=== PATIENT | female | born 1950 | race Caucasian/White ===

== ENCOUNTER → 2016-10-03 | Outpatient (CLI) | payer MEDICARE, BC ==
[~2016-10-03] MED LIST: ALPR0.5T3 PO; ASCO500C PO; CHOL1TAB42 PO; DIAZ5 PO; ESCI10TA PO; L-ME1CAP2 PO; LOSA100T PO; METO25TA6 PO; PRIL20CA9 PO; TANDCAP PO
--- NOTE | 2016-10-03 15:11 | RADRPT ---
EXAM DATE/TIME: 10/03/2016 14:35 [facility] COMPARISON: No previous studies available for comparison. INDICATIONS : Evaluate for pneumonia, pneumothorax and communicable diseases. Pre-op uterine surg leah MEDICAL HISTORY : Skin cancer SURGICAL HISTORY : None. ENCOUNTER: Initial ACUITY: 1 day PAIN SCORE: 0/10 LOCATION: Chest FINDINGS: There is a large hiatal hernia present. The lungs are clear. Heart and pulmonary vascularity are no rmal. Portion of bony skeleton visualized is unremarkable. CONCLUSION: Large hiatal hernia. Orville Curiel MD FACR on October 03, 2016 at 15:06 Board Certified Radiologist. This report was verified electronically.
--- NOTE | 2016-10-04 14:47 | EKG ---
Date Performed: 10/03/2016 Time Performed: 13:47:28 PTAGE: 66 years EKG: Sinus rhythm NORMAL ECG NO PREVIOUS TRACING DOCTOR: Ward Son Interpretating Date/Time 10/04/2016 14:40:28
== END ==
LOC: CPRE 12:53
PROVIDERS: ATTEND Obstetrics & Gynecology
DX: N83.202 Unspecified ovarian cyst, left side (principal)
CPT/HCPCS: 71020; 93005

== ENCOUNTER 2016-10-12 06:04 | Inpatient (IN) | payer MEDICARE, BC ==
[~2016-10-12] VITALS: Ht 177.8 cm; Wt 88.5 kg
[~2016-10-12 06:04] MED LIST changes: -DIAZ5 PO
[2016-10-12] MEDS ORDERED: ceFAZolin 2 GM PREMIX 50 ML IV ONE (06:45)
[2016-10-12] MEDS ORDERED: SODIUM CHLORID 0.9% 500 ML IV SCH (07:00)
[2016-10-12] MEDS ORDERED: INSULIN HUMAN REGULAR 1,000 UNITS/10 ML VIAL SQ PRN (07:00)
[2016-10-12] MEDS ORDERED: METOPROLOL TARTRATE 25 MG TAB PO PRN (07:00)
[2016-10-12] MEDS ORDERED: LACTATED RINGER'S 1000 ML IV SCH (07:00)
[2016-10-12] MEDS ORDERED: DIAZ5 PO (07:01)
[2016-10-12 07:07] VITALS: BP 160/86; PULSE 63; RESP 16; TEMP 99; O2SAT 99
[2016-10-12] MEDS ORDERED: MIDAZOLAM HCL 2 MG/2 ML VIAL ONE (08:02)
[2016-10-12] MEDS ORDERED: ARTIFICIAL TEARS OPTH OINT 3.5 APPLIC/3.5 GM TUBO ONE (08:02)
[2016-10-12] MEDS ORDERED: DEXAMETHASONE SOD PHOS 4 MG/ML VIAL ONE (08:02)
[2016-10-12] MEDS ORDERED: ACETAMINOPHEN 1000 MG/100 ML VIAL IV ONE (08:02)
[2016-10-12] MEDS ORDERED: FAMOTIDINE 20 MG/2 ML VIAL ONE (08:03)
[2016-10-12] MEDS ORDERED: NEOSTIGMINE 3 MG/3 ML SYR IV ONE (10:04)
[2016-10-12] MEDS ORDERED: PROPOFOL 200 MG/20 ML AMP IV ONE (10:04)
[2016-10-12] MEDS ORDERED: ePHEDrine/NS 25 MG/5 ML SYR IV ONE (10:04)
[2016-10-12] MEDS ORDERED: LACTATED RINGER'S 1000 ML INJ 2,000 ML IV ONE (10:05)
[2016-10-12] MEDS ORDERED: ONDANSETRON HCL 4 MG/2 ML VIAL IV PUSH ONE (10:05)
[2016-10-12] MEDS ORDERED: DO NOT ADM ANY ANTICOAGULANT DRUGS XX PRN (11:52)
--- NOTE | 2016-10-12 11:57 | RADRPT ---
EXAM DATE/TIME: 10/12/2016 11:04 [facility] COMPARISON: No previous studies available for comparison. INDICATIONS : Evaluate for foreign body, instrument count in OR. MEDICAL HISTORY : None. SURGICAL HISTORY : None. ENCOUNTER: Initial ACUITY: 1 day PAIN SCORE: Non-responsive. LOCATION: Bilateral abdomen FINDINGS: Examination of the abdomen demonstrates a nonspecific bowel gas pattern. No pneumoperitoneum. No radi opaque foreign body. No organomegaly is evident. Osseous structures are intact. CONCLUSION: No radiopaque foreign body identified. Nonobstructed bowel gas pattern. Curt Sorto MD on October 12, 2016 at 11:54 Board Certified Radiologist. This report was verified electronically.
[2016-10-12] MEDS ORDERED: fentaNYL CITRATE 250 MCG/5 ML AMP ONE ×2 (12:08)
[2016-10-12] MEDS ORDERED: *ONDANSETRON 4 MG VIAL PERIprocedural Use ONLY ONE (12:10)
[2016-10-12] MEDS ORDERED: *morphine SULFATE 8 MG/ML PERIprocedure ONLY ONE ×3 (12:13→12:41)
[2016-10-12] MEDS ORDERED: ZOLPIDEM TARTRATE 5 MG TAB PO PRN (12:45)
[2016-10-12] MEDS ORDERED: diphenhydrAMINE HCL 50 MG/ML VIAL IV PRN (12:45)
[2016-10-12] MEDS ORDERED: oxyCODONE/ACETAMINOPHEN 5 MG/325 MG TAB PO PRN (12:45)
[2016-10-12] MEDS ORDERED: IBUPROFEN 600 MG TAB PO PRN (12:45)
[2016-10-12] MEDS ORDERED: DOCUSATE SODIUM 100 MG CAP PO PRN (12:45)
[2016-10-12] MEDS ORDERED: PROMETHAZINE HCL 25 MG TAB PO PRN (12:45)
[2016-10-12] MEDS ORDERED: ONDANSETRON ODT 4 MG TAB SL PRN (12:45)
[2016-10-12] MEDS ORDERED: DIAZEPAM 5 MG TAB PO PRN (12:45)
[2016-10-12] MEDS ORDERED: ONDANSETRON HCL 4 MG/2 ML VIAL IV PUSH PRN (12:45)
[2016-10-12] MEDS ORDERED: *HYDROmorphone PF 1 MG VIAL PERIprocedural Use ONLY ONE (12:57)
[2016-10-12] MEDS ORDERED: SODIUM CHLORIDE 0.9% FLUSH 5 ML FLUSH IV FLUSH PRN (13:00)
[2016-10-12 14:00] VITALS: BP 120/67; PULSE 84; RESP 20; TEMP 96.3; O2SAT 88
[2016-10-12] MEDS: oxyCODONE/ACETAMINOPHEN 10 MG/325 MG TAB PO PRN ×2 (14:07→21:53)
[2016-10-12 16:00] VITALS: BP 111/68; PULSE 79; RESP 16; TEMP 97.3; O2SAT 95
[2016-10-12] MEDS ORDERED: ALPRAZolam 0.5 MG TAB PO PRN (16:45)
[2016-10-12] MEDS: HYDROmorphone HCL PF 1 MG/ML VIAL IV PUSH PRN (16:50)
[2016-10-12 20:00] VITALS: BP 95/60; PULSE 74; RESP 18; TEMP 96.1; O2SAT 94
[2016-10-12] MEDS: SODIUM CHLORIDE 0.9% FLUSH 5 ML FLUSH IV FLUSH SCH (20:03)
[2016-10-12] MEDS: LACTATED RINGER'S 1000 ML INJ 1,000 ML IV SCH (21:53)
[2016-10-13] VITALS: BP 108/59; PULSE 74; RESP 18; TEMP 97.1; O2SAT 97
[2016-10-13] MEDS: HYDROmorphone HCL PF 1 MG/ML VIAL IV PUSH PRN ×2 (00:38→06:31)
[2016-10-13 04:00] VITALS: BP 108/57; PULSE 82; RESP 18; TEMP 97; O2SAT 95
[2016-10-13] MEDS: oxyCODONE/ACETAMINOPHEN 10 MG/325 MG TAB PO PRN ×3 (04:36→18:20)
[2016-10-13] MEDS: LACTATED RINGER'S 1000 ML INJ 1,000 ML IV SCH ×3 (06:32→22:00)
[2016-10-13 08:00] VITALS: BP 96/59; PULSE 80; RESP 18; TEMP 98.4; O2SAT 92
[2016-10-13] MEDS: LOSARTAN 50 MG TAB PO SCH (08:59)
[2016-10-13] MEDS: SODIUM CHLORIDE 0.9% FLUSH 5 ML FLUSH IV FLUSH SCH ×2 (09:00→21:41)
[2016-10-13] MEDS: ESCITALOPRAM OXALATE 10 MG TAB PO SCH (09:01)
[2016-10-13] MEDS: PANTOPRAZOLE SOD 20 MG DELAYED RELEASE TAB PO SCH (09:01)
[2016-10-13 09:24] LABS: AUTOMATED NEUTROPHIL # 6.4 TH/MM3 (1.8-7.7); BASOPHIL % 0.2 % (0.0-2.0); EOSINOPHIL % 0.2 % (0.0-4.0); HEMATOCRIT 40.1 % (35.0-46.0); HEMO FLAGS DIFF FINAL; LYMPH % 16.7 % (9.0-44.0); LYMPHOCYTE # 1.5 TH/MM3 (1.0-4.8); MEAN CELL VOLUME 96.1 FL (80.0-100.0); MEAN CORPUSCULAR HEMOGLOBIN 31.1 PG (27.0-34.0); MEAN CORPUSCULAR HGB CONC 32.4 % (32.0-36.0); MONO % 10.9 % (0.0-8.0); PLATELET COUNT 186 TH/MM3 (150-450); RED BLOOD COUNT 4.17 MIL/MM3 (4.00-5.30); RED CELL DISTRIBUTION WIDTH 14.5 % (11.6-17.2); WHITE BLOOD COUNT 8.9 TH/MM3 (4.0-11.0)
[2016-10-13 09:32] LABS: POTASSIUM 5.1 MEQ/L (3.5-5.1)
--- NOTE | 2016-10-13 11:19 | HHI.DCPOC ---
Discharge Care Plan Diagnosis: (1) Adnexal mass (2) Uterine fibroid Report Symptoms to Your Doctor -Temperate above 100.5 degrees -Redness, of incision or excessive or foul smelling drainage -Unusual pain or calf pain -Increased vaginal bleeding -Painful or difficulty urinating -Feelings of extreme sadness or anxiety after 2 weeks Goals to Promote Your Health * To prevent worsening of your condition and complications * To maintain your health at the optimal level Directions to Meet Your Goals Take your medications as prescribed Follow your dietary instruction Follow activity as directed Ensure plenty of rest for recovery Drink fluids for hydration Keep your appointments as scheduled Take your immunizations and boosters as scheduled If your symptoms worsen call your PCP, if no PCP go to Urgent Care Center or Emergency Room Smoking is Dangerous to Your Health. Avoid second hand smoke Call the 24-hour crisis hotline for domestic abuse at Edilma Melendrez Oct 13, 2016 11:18
[2016-10-13 13:45] VITALS: BP 115/57; PULSE 74; RESP 18; TEMP 98.1; O2SAT 94
--- NOTE | 2016-10-13 13:48 | MP ---
cc: Nikki MOSQUEDA MD DATE OF SURGERY: October 12, 2016 PREOPERATIVE DIAGNOSIS 1. Large adnexal mass, rule out ovarian tumors. 2. Fibroids. POSTOPERATIVE DIAGNOSIS 1. Large adnexal mass, rule out ovarian tumors. 2. Fibroids. 3. Multiple large pedunculated fibroids. PROCEDURE Examination under anesthesia, hysteroscopic exam with a D&C. Laparoscopic exam, total abdominal hysterectomy, bilateral salpingo-oophorectomy and left ureterolysis. ANESTHESIA General endotracheal intubation. SURGEON Nikki Mosqueda MD FINDINGS Examination under anesthesia, the cervix was small without lesions. The uterus and adnexa were not easily palpable secondary to adipose tissue. The hysteroscopic exam revealed atrophic endometrium. There was some white fluffy material posteriorly and there was two small posterior submucous fibroids approximately 6-8 mm each. The D&C revealed a small amount of tissue. Laparoscopic exam revealed a uterus with numerous pedunculated fibroids, some of these were placed very close to the internal cervical os and the one on the left was plastered against the ovary. Several other large pedunculated fibroids, one in the left broad ligament as well. The ureter on the left side was deep, during the dissection of the infundibulopelvic ligament, it looked like we may have cut the ureter, so we had to do ureterolysis on the left to ensure that the ureter was intact. The upper abdomen was normal. The GI tract was normal. COMPLICATIONS It was a difficult case secondary to multiple fibroids and large blood loss. COUNTS Counts were correct. ESTIMATED BLOOD LOSS 350 ccs. FLUIDS Crystalloids. CONDITION The patient tolerated the procedure well and went to the recovery room in good condition. INDICATION FOR THIS PROCEDURE This is a lady who came in with a CT scan in April which showed adnexal mass versus a pedunculated fibroid. We followed up with an ultrasound and we still could not tell. They offered for an MRI. She did have multiple fibroids, however, there was this one on the left that we were very concerned about. We followed her up several months later with ultrasound that had not grown. I felt more confident that this was a fibroid but she was subsequently followed up and we had planned to do the very minimal surgery, if that was an ovarian mass, remove it, remove her ovaries and tubes and if that was pedunculated fibroid just remove that and for her to go home the same-day however, she also had a borderline thick endometrium so we are going to do a D&C at the same time. Once we stuck the laparoscope in however, we realized this was not going to be as simple as that, she had multiple large pedunculated fibroids. PROCEDURE IN DETAIL The patient was taken to the operating room, identified by name band and verbally. Given a general anesthetic, carefully placed in dorsal lithotomy position, prepped and draped in the usual sterile manner for laparoscopic vaginal surgery. The time-out was taken and a Weiner catheter was inserted. A weighted speculum was placed in the vagina. The anterior lip of the cervix was grasped with a single-tooth tenaculum. The cervix was serially dilated without difficulty and hysteroscope was inserted. There was two small submucous myomas and there was some fluffy material posteriorly which kind of looks like proliferative endometrium, however, the D&C revealed very small tissue. Once we had totally inspected the endometrium a small curette was placed into the uterine cavity and briskly curetted. Again with the hope that we would not have to remove the uterus. At this time the Hulka clamp was placed and attention was turned to the umbilical area. We tried twice with a 5 mm trocar to get into the abdomen and were unsuccessful. We tried in the left lower quadrant as well with a 5 mm trocar unsuccessful again. We finally got a long trocar and with this we did get in and created a pneumoperitoneum with 3 liters of CO2 and at that time realized that she would need a total abdominal hysterectomy. The left ovary had a fibroid wrapped around it and she had multiple other fibroids, specifically several around the level of the internal cervical os where we take the uterine vessels. This is going to be of very long and difficult case to do laparoscopically, if it could be done at all and at this time we decided to proceed with a open case. She was taken out of the dorsolithotomy position and a sheet was placed over her legs. We kept the field sterile. At this point we made a Pfannenstiel incision, carried it down to the fascia. Fascia was taken off the rectus muscle by blunt and sharp dissection. The rectus muscles were spread bluntly and the peritoneum entered under direct vision without difficulty. The incision was extended with care to avoid the urinary bladder. The exploratory laparotomy was carried out at this time with the above findings and then the bowels were packed back and the round ligaments were taken bilaterally with Eli clamps and 0 Vicryl pop offs. At this point we went to the left infundibulopelvic ligament and dissected this free. I thought it was fine. We took it quite lateral and with two Eli clamps and a 0-Vicryl free tie and stick tie. At this point it looked like there was a big vessel like vein in the infundibulopelvic but it looked a little bit larger than usual, kind of resembled the ureter and we had not totally identified the ureter at this point. We took the right infundibulopelvic ligament at this time with two Eli's and a free tie and a stick tie with 0 Vicryl. We took down the broad ligament to the level of the internal cervical os with the Bovie and sharp dissection and we dissected the vessels fairly easily bilaterally at the level of the internal cervical os and these vessels were taken with two Gemma clamps and a Eli back bleeder. 0 Vicryl stick ties were used to secure these vessels. We began to dissect the bladder and push it out of harm's way at this time, pushed it over to the anterior vaginal wall. The cardinal ligament was taken off the cervix using Елена clamps staying very close to the cervix to avoid ureteral injury and this was taken with 0 Vicryl pop offs until the level of the vaginal canal was attained. At this point the vagina was incised sharply with a scalpel and the specimen removed using Jovita scissors. [place] sutures were placed laterally and the cuff was closed with 0 Vicryl in [id number]-dipiw fashion with excellent results. Bleeding at this time was excellent. She was having some bleeding around the bladder between the vagina and the bladder and a single nroeev-dg-stxdd stitch with 3-0 plain gut was placed here. There was still some areas seen and we placed some Bharat in there to control the bleeding. Bleeding was good at this time. We had previously irrigated the pelvis and abdomen with large amount of fluid. Pictures were taken of the uterus since there was so many fibroids and once the vaginal cuff had been closed and bleeding was under control, we inspected the entire pelvis. There was no more bleeding. Hemostasis was excellent and the self-retaining retractor and laps were removed. We did internal check for extra laps, there was none. All instruments were removed. The rectus muscle was reapproximated with 0 Vicryl in a running fashion with excellent results. The fascia was repaired with 0 Vicryl in a running fashion. Subcu was repaired with 3-0 Vicryl. Skin was repaired with 4-0 Monocryl in subcuticular fashion. She tolerated the procedure well and went to the recovery room in good condition. R. MD KAT OlmsteadV/LUISL /12:47 PM /1:08 PM
[2016-10-13 16:00] VITALS: BP 149/69; PULSE 80; RESP 18; O2SAT 92
--- NOTE | 2016-10-13 17:48 | HHI.PR ---
Subjective Remarks Doing well, pain is well controlled, eating well. Objective Vital Signs Vital Signs Date Time Temp Pulse Resp B/P Pulse Ox O2 Delivery O2 Flow Rate FiO2 10/13/16 16:00 80 18 149/69 92 10/13/16 13:45 98.1 74 18 115/57 94 10/13/16 08:00 98.4 80 18 96/59 92 10/13/16 04:00 97.0 82 18 108/57 95 10/13/16 00:00 97.1 74 18 108/59 97 10/12/16 20:00 96.1 74 18 95/60 94 I/O 10/12/16 10/12/16 10/12/16 10/13/16 10/13/16 10/13/16 07:00 15:00 23:00 07:00 15:00 23:00 Intake Total 3000 ml 240 ml 720 ml 625 ml Output Total 700 ml 600 ml 200 ml Balance 2300 ml 240 ml 120 ml 425 ml Intake Oral 0 ml 240 ml 720 ml IV Total 625 ml Other 3000 ml Output Urine Total 350 ml 600 ml 200 ml Estimated Blood Loss 350 ml # Voids 1 Result Diagram: 10/13/16 0753 10/13/16 0755 Objective Remarks Chest is clear, regular rate and rhythm. Abdomen is soft and non-distended. Incision is clean and dry. Ext no CCE. A/P Assessment and Plan Post Op Day 1 S/P TALHA/BSO Doing well Consider d/c home tomorrow or next day. Has all pain meds at home. Nikki Geronimo MD Oct 13, 2016 17:47
[2016-10-13 20:00] VITALS: BP 139/66; PULSE 110; RESP 16; TEMP 98.6; O2SAT 94
[2016-10-14] VITALS: BP 122/56; PULSE 117; RESP 16; TEMP 100.6; O2SAT 94
[2016-10-14 05:10] VITALS: BP 129/50; PULSE 88; RESP 16; TEMP 101.5; O2SAT 93
[2016-10-14] MEDS: LACTATED RINGER'S 1000 ML INJ 1,000 ML IV SCH (05:12)
[2016-10-14 08:00] VITALS: BP 147/74; PULSE 76; RESP 19; TEMP 98.9; O2SAT 95
[2016-10-14] MEDS: LOSARTAN 50 MG TAB PO SCH (09:05)
[2016-10-14] MEDS: SODIUM CHLORIDE 0.9% FLUSH 5 ML FLUSH IV FLUSH SCH (09:05)
[2016-10-14] MEDS: PANTOPRAZOLE SOD 20 MG DELAYED RELEASE TAB PO SCH (09:05)
[2016-10-14] MEDS: ESCITALOPRAM OXALATE 10 MG TAB PO SCH (09:05)
[2016-10-14 11:03] LABS: AUTOMATED NEUTROPHIL # 4.1 TH/MM3 (1.8-7.7); BASOPHIL % 0.5 % (0.0-2.0); EOSINOPHIL # 0.1 TH/MM3 (0-0.4); EOSINOPHIL % 1.3 % (0.0-4.0); HEMATOCRIT 32.9 % (35.0-46.0); HEMO FLAGS DIFF FINAL; LYMPHOCYTE # 1.2 TH/MM3 (1.0-4.8); MEAN CELL VOLUME 93.6 FL (80.0-100.0); MEAN CORPUSCULAR HEMOGLOBIN 31.6 PG (27.0-34.0); MEAN CORPUSCULAR HGB CONC 33.8 % (32.0-36.0); MONO % 11.9 % (0.0-8.0); NEUT % 66.3 % (16.0-70.0); PLATELET COUNT 160 TH/MM3 (150-450); RED BLOOD COUNT 3.51 MIL/MM3 (4.00-5.30); RED CELL DISTRIBUTION WIDTH 13.9 % (11.6-17.2); WHITE BLOOD COUNT 6.2 TH/MM3 (4.0-11.0)
[2016-10-14 11:07] LABS: SCAN/DIFF AUTO DIFF CONFIRMED
--- NOTE | 2016-10-14 11:34 | HHI.PR ---
Subjective Remarks Doing well, pain is well controlled, pt ready to go home Objective Vital Signs Vital Signs Date Time Temp Pulse Resp B/P Pulse Ox O2 Delivery O2 Flow Rate FiO2 10/14/16 08:00 98.9 76 19 147/74 95 10/14/16 05:10 101.5 88 16 129/50 93 10/14/16 00:00 100.6 117 16 122/56 94 10/13/16 20:00 98.6 110 16 139/66 94 10/13/16 16:00 80 18 149/69 92 10/13/16 13:45 98.1 74 18 115/57 94 I/O 10/13/16 10/13/16 10/13/16 10/14/16 10/14/16 10/14/16 07:00 15:00 23:00 07:00 15:00 23:00 Intake Total 720 ml 1345 ml 300 ml 300 ml Output Total 600 ml 200 ml 300 ml 400 ml Balance 120 ml 1145 ml 0 ml -100 ml Intake Oral 720 ml 720 ml 300 ml 300 ml IV Total 625 ml Output Urine Total 600 ml 200 ml 300 ml 400 ml # Voids 1 2 # Bowel Movements 0 0 Result Diagram: 10/14/16 1033 10/13/16 0755 Objective Remarks Chest is clear, regular rate and rhythm. Abdomen is soft and non-distended. Incision dressing is clean and dry. Ext no CCE. A/P Assessment and Plan Post Op Day 2 S/P TALHA/BSO Doing well with no complaints, pt is anxious to go home fever this am 101.5, cbc ordered + BM Consider d/c home today Has all pain meds at home. Edilma Melendrez Oct 14, 2016 11:34
[2016-10-14 12:00] VITALS: BP 139/73; PULSE 72; RESP 18; TEMP 99.3; O2SAT 95
[2016-10-14 16:00] VITALS: BP 148/75; PULSE 73; RESP 18; TEMP 99.8; O2SAT 98
--- NOTE | 2016-10-14 16:22 | HHI.PR ---
Subjective Remarks Doing well, pain is well controlled, eating well. states her temperature always is 99 feels great walking, eating, passing flatus and voiding well desires discharge Objective Vital Signs Vital Signs Date Time Temp Pulse Resp B/P Pulse Ox O2 Delivery O2 Flow Rate FiO2 10/14/16 16:00 99.8 73 18 148/75 98 10/14/16 12:00 99.3 72 18 139/73 95 10/14/16 08:00 98.9 76 19 147/74 95 10/14/16 05:10 101.5 88 16 129/50 93 10/14/16 00:00 100.6 117 16 122/56 94 10/13/16 20:00 98.6 110 16 139/66 94 I/O 10/13/16 10/13/16 10/13/16 10/14/16 10/14/16 10/14/16 07:00 15:00 23:00 07:00 15:00 23:00 Intake Total 720 ml 1345 ml 300 ml 300 ml Output Total 600 ml 200 ml 300 ml 400 ml Balance 120 ml 1145 ml 0 ml -100 ml Intake Oral 720 ml 720 ml 300 ml 300 ml IV Total 625 ml Output Urine Total 600 ml 200 ml 300 ml 400 ml # Voids 1 2 # Bowel Movements 0 0 Result Diagram: 10/14/16 1033 10/13/16 0755 Objective Remarks Chest is clear, regular rate and rhythm. Abdomen is soft and non-distended. Incisions dressing is clean and dry. Ext no CCE. A/P Assessment and Plan Post Op Day 2 S/P TALHA/BSO Doing well with no complaints, pt is anxious to go home afebrile and WBC fine + BM Home today counseled on what to look for to call or return Has all pain meds at home. Sammie Mcneill MD Oct 14, 2016 16:22
--- NOTE | 2016-10-14 16:23 | HHI.DCPOC ---
Discharge Care Plan Report Symptoms to Your Doctor -Temperate above 100.5 degrees -Redness, of incision or excessive or foul smelling drainage -Unusual pain or calf pain -Increased vaginal bleeding -Painful or difficulty urinating -Feelings of extreme sadness or anxiety after 2 weeks Goals to Promote Your Health * To prevent worsening of your condition and complications * To maintain your health at the optimal level Directions to Meet Your Goals Take your medications as prescribed Follow your dietary instruction Follow activity as directed Ensure plenty of rest for recovery Drink fluids for hydration Keep your appointments as scheduled Take your immunizations and boosters as scheduled If your symptoms worsen call your PCP, if no PCP go to Urgent Care Center or Emergency Room Smoking is Dangerous to Your Health. Avoid second hand smoke Call the 24-hour crisis hotline for domestic abuse at Sammie Mcneill MD Oct 14, 2016 16:23
== END 2016-10-14 17:07 | disposition home or self-care (01) | DRG 743 ==
LOC: HSDC 06:04 → EDUNIT# 13:00 → HOCA 13:52 → OBSVTOIN 15:42
PROVIDERS: ADMIT Obstetrics & Gynecology; ATTEND Obstetrics & Gynecology
PROC: 0UT70ZZ Resection of Bilateral Fallopian Tubes, Open Approach (ICD-10-PCS; 2016-10-12)
PROC: 0WJJ4ZZ Inspection of Pelvic Cavity, Percutaneous Endoscopic Approach (ICD-10-PCS; 2016-10-12)
PROC: 0UTC0ZZ Resection of Cervix, Open Approach (ICD-10-PCS; 2016-10-12)
PROC: 0TN70ZZ Release Left Ureter, Open Approach (ICD-10-PCS; 2016-10-12)
PROC: 0UDB8ZX Extraction of Endometrium, Via Natural or Artificial Opening Endoscopic, Diagnostic (ICD-10-PCS; 2016-10-12)
PROC: 0UT90ZZ Resection of Uterus, Open Approach (ICD-10-PCS; principal; 2016-10-12 08:06)
PROC: 0UT20ZZ Resection of Bilateral Ovaries, Open Approach (ICD-10-PCS; 2016-10-12 08:06)
DX: D25.0 Submucous leiomyoma of uterus (principal); N85.8 Other specified noninflammatory disorders of uterus; Z53.31 Laparoscopic surgical procedure converted to open procedure; R50.9 Fever, unspecified
CPT/HCPCS: 74000; 82565; 84132; 85025; 86850; 86900; 86901; 88305; 88307; J0131; J0690; J1100; J1170; J1200; J2250; J2270; J2405; J2710; J3010; J7120; Q0169